=== PATIENT | male | born 1940 | race Caucasian/White ===

== ENCOUNTER 2017-05-27 04:55 | Inpatient (IN) ==
[2017-05-25 15:18] LABS: Appearance,Urine CLEAR; Bilirubin,Urine NEG (NEG); Color,Urine YELLOW; Glucose,Urine (UA) NEGATIVE (NEG); Leukocyte Esterase,Urine NEG /uL (NEG); Nitrate,Urine NEG (NEG); Protein,Urine NEG (NEG); Specific Gravity,Urine 1.018 (1.000-1.035); Urine Blood NEG mg/dL (<0.03); Urobilinogen,Urine NEG (NEG)
[2017-05-25 15:35] LABS: Basophils # (Auto) 0 K/mcL (0.0-0.3); Basophils % (Auto) 0.2 % (0.0-2.0); Eosinophils # (Auto) 0.2 K/mcL (0.0-0.7); Eosinophils % (Auto) 2.1 % (0.0-7.0); Granulocytes % (Auto) 70.2 % (38.0-78.0); Lymphocytes # (Auto) 1.8 K/mcL (1.5-4.8); Lymphocytes % (Auto) 21.6 % (15.5-49.0); Mean Cell Volume 92.3 fL (80.0-100.0); Mean Corpuscular HGB Conc 34.5 g/dL (31.0-36.0); Mean Corpuscular Hemoglobin 31.9 pg (26.0-34.0); Monocytes # (Auto) 0.5 K/mcL (0.1-0.9); Monocytes % (Auto) 5.9 % (1.0-12.0); Platelet Count 186 K/mcL (140-440); Red Cell Distribution Width 13.2 % (11.5-14.5)
[2017-05-25 15:50] LABS: Blood Urea Nitrogen 12 mg/dl (8-23)
[2017-05-27] MEDS ORDERED: ceFAZolin 1 GM VIAL IV SCH (05:00)
[2017-05-27] MEDS ORDERED: ACETAMINOPHEN 500 MG TABLET PO SCH (05:00)
[2017-05-27] MEDS ORDERED: oxyCODONE 10 MG TAB.ER.12H PO SCH (05:00)
[2017-05-27] MEDS ORDERED: PREGABALIN 75 MG CAPSULE PO SCH (05:00)
[2017-05-27] MEDS ORDERED: CELECOXIB 200 MG CAPSULE PO SCH (05:00)
[2017-05-27] MEDS ORDERED: KETOROLAC 30 MG, ROPIVACAINE HCL/PF 49.5 ML, EPINEPHrine 0.5 MG, 0.9 % SODIUM CHLORIDE ... IJ SCH (06:30)
[2017-05-27] MEDS ORDERED: ONDANSETRON 4 MG/2 ML VIAL IV PRN ×2 (07:28→09:20)
[2017-05-27] MEDS ORDERED: TEMAZEPAM 15 MG CAPSULE PO PRN (07:28)
[2017-05-27] MEDS ORDERED: FLEETS ADULT ENEMA PR PRN (07:28)
[2017-05-27] MEDS ORDERED: TRANEXAMIC ACID 1,000 MG/10 ML VIAL IV ONE ×2 (07:28→07:45)
[2017-05-27] MEDS ORDERED: POLYETHYLENE GLYCOL 3350 17 GM PACKET PO PRN (07:28)
[2017-05-27] MEDS ORDERED: BENZOCAINE/MENTHOL 1 LOZENGE PO PRN ×2 (07:28→09:20)
[2017-05-27] MEDS ORDERED: HYDROcodone/APAP 10/325MG TABLET PO PRN (07:28)
[2017-05-27] MEDS ORDERED: HYDROmorphone 2 MG/ML SYRINGE IV PRN ×2 (07:28→09:20)
[2017-05-27] MEDS ORDERED: MAGNESIUM HYDROXIDE 30 ML ORAL.SUSP PO PRN (07:28)
[2017-05-27] MEDS ORDERED: ACETAMINOPHEN 325 MG TABLET PO PRN (07:28)
[2017-05-27] MEDS ORDERED: BISACODYL 10 MG SUPP.RECT PR PRN (07:28)
[2017-05-27] MEDS ORDERED: GLYCOPYRROLATE 0.2 MG/ML VIAL IV ONE (07:45)
[2017-05-27] MEDS ORDERED: fentaNYL 250 MCG/5 ML VIAL IV ONE (07:45)
[2017-05-27] MEDS ORDERED: LIDOCAINE HCL/PF 100 MG/5 ML SYRINGE IV ONE (07:45)
[2017-05-27] MEDS ORDERED: HYDROmorphone 2 MG/ML SYRINGE IV ONE (07:45)
[2017-05-27] MEDS ORDERED: KETAMINE 100 MG/ML ML IV ONE (07:45)
[2017-05-27] MEDS ORDERED: ROPIVACAINE HCL/PF 20 ML VIAL IJ ONE (07:45)
[2017-05-27] MEDS ORDERED: DEXAMETHASONE 10 MG/ML VIAL IV ONE (07:45)
[2017-05-27] MEDS ORDERED: MIDAZOLAM 2 MG/2 ML VIAL IV ONE (07:45)
[2017-05-27] MEDS ORDERED: ONDANSETRON 4 MG/2 ML VIAL IV ONE (07:45)
[2017-05-27] MEDS ORDERED: PROPOFOL 200 MG/20 ML VIAL IV ONE (07:45)
[2017-05-27] MEDS ORDERED: ASPIRIN 325 MG TABLET.DR PO SCH (09:00)
[2017-05-27] MEDS ORDERED: fentaNYL 100 MCG/2 ML VIAL IV PRN (09:20)
[2017-05-27] MEDS ORDERED: MEPERIDINE 25 MG/ML SYRINGE IV PRN (09:20)
[2017-05-27] MEDS ORDERED: ePHEDrine 50 MG/ML AMPUL IV PRN (09:20)
[2017-05-27] MEDS ORDERED: METHOCARBAMOL 1,000 MG/10 ML VIAL IV PRN (09:20)
[2017-05-27] MEDS ORDERED: MEPERIDINE 50 MG/ML SYRINGE IM PRN (09:20)
[2017-05-27] MEDS ORDERED: PROMETHAZINE 25 MG/ML VIAL IV PRN (09:20)
[2017-05-27] MEDS ORDERED: PROMETHAZINE 25 MG/ML VIAL IM PRN (09:20)
[2017-05-27] MEDS ORDERED: diphenhydrAMINE 50 MG/ML VIAL IV PRN (09:20)
[2017-05-27] MEDS ORDERED: LACTATED RINGERS 250 ML IV PRN (09:20)
[2017-05-27] MEDS ORDERED: NALOXONE HCL 0.4 MG/ML VIAL IV PRN (09:20)
[2017-05-27] MEDS ORDERED: IPRATROPIUM/ALBUTEROL 3 ML AMPUL.NEB NEB PRN (09:20)
[2017-05-27] MEDS ORDERED: FLUMAZENIL 0.1 MG/ML ML IV PRN (09:20)
[2017-05-27] MEDS ORDERED: GENTAMICIN SULFATE 800 MG/20 ML VIAL IR ONE (09:27)
[2017-05-27] MEDS ORDERED: LACTATED RINGERS 1,000 ML IV SCH (09:30)
[2017-05-27] MEDS: 0.45 % SODIUM CHLORIDE 1,000 ML IV SCH ×2 (10:06→17:51)
--- NOTE | 2017-05-27 10:50 | XRay Report ---
CLINICAL INFORMATION: Postop total knee prostheses - revision COMPARISON: 11/24/2015 preoperative x-ray. FINDINGS: Total knee prostheses revision is anatomically aligned. no osseous abnormality. Mild periarticular soft tissue swelling and gas - as expected IMPRESSION: Negative Interpreted and Authenticated by: Garrison Cox 05/27/17
[2017-05-27] MEDS: FISH OIL 1,000 MG CAPSULE PO SCH (10:56)
[2017-05-27] MEDS: TAMSULOSIN 0.4 MG CAPSULE PO SCH (10:56)
[2017-05-27] MEDS: ASPIRIN 325 MG ENTERIC COATED TABLET PO SCH ×2 (10:56→22:01)
[2017-05-27] MEDS: PSYLLIUM HUSK 6 GM PACKET PO SCH (10:56)
[2017-05-27] MEDS: DOCUSATE SODIUM 100 MG CAPSULE PO SCH ×2 (10:56→22:00)
[2017-05-27] MEDS: 0.9 % SODIUM CHLORIDE 10 ML SYRINGE IV SCH ×2 (13:42→22:01)
[2017-05-27] MEDS: KETOROLAC 15 MG/ML VIAL IV SCH ×3 (14:00→23:37)
--- NOTE | 2017-05-27 15:09 | Brief Operative Note ---
Date of procedure: 05/27/17 Pre-op diagnosis: Right knee arthrofibrosis Post-op diagnosis: same Procedure: right tka revision of all comp Grafts/Implants: Yes Anesthesia: GETA Complications: none Surgeon: Michael Grider Recreation Therapist: Chi Amaro Estimated blood loss (cc): 100 Tourniquet Time (Minutes): 80 Specimens Removed/Pathology: none sent Condition: stable Disposition: PACU
--- NOTE | 2017-05-27 15:51 | Operative Note ---
DATE OF OPERATION: 05/27/2017 PREOPERATIVE DIAGNOSIS: Right knee arthrofibrosis. POSTOPERATIVE DIAGNOSIS: Right knee arthrofibrosis. PROCEDURE: Right total knee arthroplasty complete revision of both the femoral and tibial components. SURGEON: Michael Grider M.D. HVAC INSTALLER: Chi Amaro PA-C. ANESTHESIA: General LMA anesthesia. TOURNIQUET TIME: 80 minutes. BLOOD LOSS: 100 mL. DESCRIPTION OF PROCEDURE: The patient was brought to the operating room. Once asleep, the patient had the right leg sterilely prepped and draped in the usual sterile fashion. A timeout had been performed to confirm the operative site and procedure both by consent form, x-rays, and initials on the skin. 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 With this we noted that the poly was only a size 7. We could not decrease the size. For this reason, we removed the femoral and tibial components where the bone was and cement interface was excellent. The implant was securely attached to the cement, and we were able to remove with osteotomes, after some work. Both components were removed, as well as the poly. We then placed an intramedullary guide michael onto the tibia, made our tibial cut at 5 mm, and then on the femoral side we placed 5 mm augments after making our cuts to stable bone. We placed intramedullary long stems, 150 mm with size 12 and size 13 stems. Once these were placed, we then used the eccentric baseplate, 2 mm of offset for perfect alignment. We set the rotation and trialed these components. We stripped the osteophytes posteriorly from the femur and scar tissue which was quite substantial, making sure to avoid any neurovascular structures. However, we did trial the size 5 femur and size 4 tibial baseplate with a 13 mm poly. This seemed to give excellent range of motion. With this, we then prepared and removed the scar tissue around the patella. We then cemented into place a size 4 tibial baseplate with a long 150 mm stem, a long 150 mm stem on the femoral side with 5 mm distal augments. We irrigated thoroughly, and this seemed to fit very nicely both in full extension. On the robot we could see that we were at 0 degrees on extension. We were able to gain full flexion 135 degrees. We irrigated and placed the implant and the 13 mm poly. We closed the mid vastus approach with #1 Stratafix x2. During the case, we did send soft tissue samples to Pathology for high-powered field. This did reveal no significant white blood cells and no bacteria within the joint. The skin was closed with 2-0 Vicryl and adhesive closure. Sterile bandage applied. The pins had been removed and closed with 4-0 nylon. Blood loss was about 100 mL to 150 mL. ANIBAL:kathy Job ID: [id number] Doc ID: [id number] Michael Grider MD
[2017-05-27] MEDS: ceFAZolin 1 GM VIAL IV SCH ×2 (17:52→23:36)
[2017-05-27] MEDS ORDERED: SENNOSIDES 1 TABLET PO SCH (21:00)
[2017-05-27] MEDS ORDERED: SIMVASTATIN 20 MG TABLET PO SCH (21:00)
[2017-05-27] MEDS ORDERED: DONEPEZIL 10 MG TABLET PO SCH (21:00)
[2017-05-27] MEDS ORDERED: MULTIVIT,THER IRON,CA,FA & MIN 1 TABLET PO SCH (21:00)
[2017-05-28] MEDS: 0.45 % SODIUM CHLORIDE 1,000 ML IV SCH ×2 (03:35→13:49)
[2017-05-28] MEDS: KETOROLAC 15 MG/ML VIAL IV SCH ×2 (05:30→15:15)
[2017-05-28] MEDS: 0.9 % SODIUM CHLORIDE 10 ML SYRINGE IV SCH (05:30)
[2017-05-28] MEDS ORDERED: LOSARTAN 50 MG TABLET PO SCH (09:00)
[2017-05-28] MEDS ORDERED: HYDROCHLOROTHIAZIDE 12.5 MG CAPSULE PO SCH (09:00)
[2017-05-28] MEDS: DOCUSATE SODIUM 100 MG CAPSULE PO SCH (09:09)
[2017-05-28] MEDS: ASPIRIN 325 MG ENTERIC COATED TABLET PO SCH (09:10)
[2017-05-28] MEDS: PSYLLIUM HUSK 6 GM PACKET PO SCH (09:10)
[2017-05-28] MEDS: FISH OIL 1,000 MG CAPSULE PO SCH (09:10)
[2017-05-28] MEDS: TAMSULOSIN 0.4 MG CAPSULE PO SCH (09:10)
--- NOTE | 2017-05-28 09:34 | Orthopedic Progress Note ---
Subjective Patient information: Note initiated : 05/28/17 at 9:32 am Service Date, if different from initiated Date: [] Patient: Demarcus Nguyen 76 y/o M admitted on 05/27/17 for Rt Total Knee Arthroplasty Revision. Chief Complaint: [doing well and walking well with no cp nor sob] Objective Vital signs: Vital Signs Temp Pulse Resp BP Pulse Ox 05/28/17 08:00 97.7 F 16 139/66 96 05/28/17 07:00 96 05/28/17 05:00 98.4 F 65 18 144/78 96 05/28/17 00:00 97.4 F 95 H 14 109/63 95 05/27/17 20:00 97.5 F 63 16 147/81 94 05/27/17 16:05 97 05/27/17 16:04 65 05/27/17 15:00 97 05/27/17 13:55 65 05/27/17 13:15 153/76 97 05/27/17 12:15 133/75 96 05/27/17 11:45 126/82 95 05/27/17 11:28 96 05/27/17 11:15 137/76 95 05/27/17 11:00 151/81 92 05/27/17 10:45 162/87 97 05/27/17 10:30 166/80 97 05/27/17 10:26 97.4 F 65 12 140/67 94 05/27/17 10:13 60 10 L 118/55 97 05/27/17 10:08 62 8 L 111/54 97 05/27/17 10:03 66 9 L 98/47 97 05/27/17 09:55 62 10 L 104/54 97 05/27/17 09:53 98.9 F 61 9 L 94/41 97 Intake and Output 05/27/17 05/28/17 05/28/17 21:59 05:59 13:59 Intake Total 360 / 360 1500 / 1500 Output Total 300 / 300 700 / 700 Balance 60 / 60 800 / 800 Intake: IV 1000 / 1000 Sodium Chloride 0.45% 1,000 ml 1000 / 1000 @ 100 mls/hr IV .Q10H ALEKSANDRA Rx#: [id number] Oral 360 / 360 500 / 500 Output: Void Amount 300 / 300 700 / 700 Other: Meal Tuna sandwich, 2 chocolate ice creams, coffee Percent of Meal Consumed 100% Feeding Ability Independent # Voids 3 Weight 186 lb Intake & Output: Intake & Output 05/27/17 05/28/17 05/28/17 21:59 05:59 13:59 Intake Total 360 / 360 1500 / 1500 Output Total 300 / 300 700 / 700 Balance 60 / 60 800 / 800 Weight 186 lb Intake: IV 1000 / 1000 Sodium Chloride 0.45% 1,000 ml 1000 / 1000 @ 100 mls/hr IV .Q10H ALEKSANDRA Rx#: [id number] Oral 360 / 360 500 / 500 Output: Void Amount 300 / 300 700 / 700 Other: Meal Tuna sandwich, 2 chocolate ice creams, coffee Percent of Meal Consumed 100% Feeding Ability Independent # Voids 3 Incision: Yes healing Incision clean and dry: Yes Dressing: Yes clean Weight bearing status: full Neurological exam IM: Yes oriented X3, Yes neurovascular intact Extremities exam IM: Yes Foot pink and warm (dc home), Yes neurovascular intact - Labs CBC & BMP: 05/25/17 13:45 05/25/17 13:45 Labs: Orthopedic Labs 05/25/17 13:45 PT 13.0 INR 1.0 APTT 30 05/28/17 05/25/17 04:50 13:45 Hgb 15.0 Hct Pending 43.3
--- NOTE | 2017-05-28 09:36 | Discharge Summary ---
Ortho Discharge - TKA - Patient Instructions Diet: Regular Diet Activity: activity as tolerated, weight bearing as tolerated Total Knee Protocol: For Total Knee: Start ROM LEROY with stationary bike or rocking chair. Work on gaining full extension of knee. Posterior dislocation precautions provided. Hip abductor strengthening and gait training instructions provided. Apply Cryocuff as instructed. Dressing Care: Aquacel Ag - leave on for 5 days Patient Education: Revision Total Joint Arthroplasty (DC) Additional Instructions: Discharge Instructions: Do the exercises at home that physical therapy gave you. You are scheduled to start physical therapy at [facility] ([phone]) on May.31 at 11:00 am, please arrive 15 minutes early for paperwork. Take your prescription, photo ID, insurance cards, and current medication list with you to your first physical therapy appointment. Take your prescription to warehouse order picker any medication or equipment (such as walker, crutches, toilet riser or C.P.M.) Wear comfortable clothing for your physical therapy. Weight bearing as tolerated. You have the Aquacel Ag dressing, leave in place for 7 days then remove. If dressing becomes soiled (turns black), remove and use gauze 4x4 dressing and silvasorb ointment and change daily. Keep incision clean and dry. You may start showering on post op day #2. To avoid constipation while taking any narcotic pain medication, take an over the counter stool softener/laxative. Use your Cryocuff or ice packs as directed, on for 20 minutes at a time throughout the day. This and elevation will help with pain and swelling. Call your physician for fevers above 100.5 or pain not controlled by medication. Your prescriptions are with your discharge information. Some medications were electronically transmitted to your pharmacy of choice. - Follow Up Plan Follow Up Appointments: Michael Grider MD [Physician] - 06/07/17 1:10 pm Disposition: Home, Self-Care Prognosis: Good Rehab Potential: Good I certify that the patient requires SNF services: No Overall status at discharge: patient is progressing back to baseline - Orders For Discharge Additional Discharge Orders: Physical Therapy at Discharge - TKA Location: Determined By Patient CPM Discharge Order Location: Determined By Patient Toilet Riser Discharge Order Location: Determined By Patient Walker Location: Determined By Patient
--- NOTE | 2017-05-30 13:42 | Surgical Pathology Report ---
HISTOLOGY SPECIMEN MICROSCOPIC DIAGNOSIS SOFT TISSUE, RIGHT KNEE, ANTERIOR CAPSULE, BIOPSY: -- FIBROADIPOSE TISSUE AND SKELETAL MUSCLE WITH MINIMAL CHRONIC INFLAMMATION. -- NO NEUTROPHILS IDENTIFIED. (ACP:sln) INTRAOPERATIVE CONSULTATION FROZEN SECTION DIAGNOSIS (Performed at [facility], [place], [place]) SOFT TISSUE, RIGHT ANTERIOR CAPSULE, KNEE, BIOPSY: -- NO NEUTROPHILS IDENTIFIED. (ACP:sln) PROCEDURAL IMPRESSION Status post right knee arthroplasty 11/24/2015. GROSS DESCRIPTION The specimen receive fresh as anterior capsule of right knee and consists of a hyperemic portion of red-maciel soft tissue with a separate portion of bone. The soft tissue measures 2.5 x 1.5 x 0.5 cm. The portion of bone measures 1.1 x 0.7 x 0.6 cm. The soft tissue is serially sectioned and entirely submitted for frozen section analysis and permanent sections as FSA. (ACP:jose) Electronically Signed by: Arturo Romeo M.D.
== END 2017-05-28 13:45 | disposition home or self-care (01) | DRG 468 ==
LOC: MEDSUR 04:55
PROVIDERS: ADMIT Orthopaedic Surgery; ATTEND Orthopaedic Surgery